=== PATIENT | male | born 1950 | race Caucasian/White ===

== ENCOUNTER → 2019-05-15 | Outpatient (CLI) | payer MEDICARE, OTHER ==
[~2019-05-15] MED LIST: DAYPRO600 M1 PO; MEDROL DOSEPAK4 MG PO; PROTONIX40 MG PO; RESTORIL30 MG PO; ROBAXIN750 MG PO; ULTRAM50 MG PO; VICODIN 500 MG-1 TAB PO
[2019-05-15 10:06] LABS: HEMATOCRIT 38.3 % (42.0-52.0); MEAN CELL VOLUME 83.4 fl (80.0-94.0); MEAN CORPUSCULAR HGB 26.1 pg (27.0-31.0); MEAN CORPUSCULAR HGB CONC 31.3 g/dl (33.0-37.0); MEAN PLATELET VOLUME 10.5 fl (9.6-12.3); RED BLOOD COUNT 4.59 10*6/uL (4.50-5.90); RED CELL DISTRI WIDTH 16.2 % (0-14.5); WHITE BLOOD COUNT 9.5 10*3/uL (4.8-10.8)
[2019-05-15 10:26] LABS: ALKALINE PHOSPHATASE 94 U/L (45-117); BUN 20 mg/dl (7-24); CHLORIDE 109 mmol/L (98-107); CHOLESTEROL 198 mg/dL (<200); CREATININE 1.16 mg/dL (0.70-1.30); HDL CHOLESTEROL 63 mg/dl (40-60); LDL CHOLESTEROL 113 mg/dL (9-159); POTASSIUM 3.8 mmol/L (3.5-5.1); SGOT/AST 21 IU/L (3-35); SGPT/ALT 23 U/L (12-78); SODIUM 141 mmol/L (136-145); TOTAL PROTEIN 8.1 gm/dL (6.4-8.2); TRIGLYCERIDES 110 mg/dl (<150); VLDL CHOLESTEROL 22 mg/dL (6-40)
== END | disposition home or self-care (01) ==
LOC: LAB 09:31
PROVIDERS: Family Medicine
DX: M47.816 Spondylosis without myelopathy or radiculopathy, lumbar region (principal); E55.9 Vitamin D deficiency, unspecified; R53.83 Other fatigue; I10 Essential (primary) hypertension

== ENCOUNTER → 2020-03-12 | Outpatient (CLI) | payer MEDICARE, OTHER ==
[~2020-03-12] MED LIST changes: +LISINOPRIL40 MG PO; +OSTERA TABLET1 EACH PO
[2020-03-12 08:24] LABS: MEAN CELL VOLUME 87.6 fl (80.0-94.0); MEAN CORPUSCULAR HGB 27.6 pg (27.0-31.0); MEAN CORPUSCULAR HGB CONC 31.5 g/dl (33.0-37.0); MEAN PLATELET VOLUME 10.3 fl (9.6-12.3); RED BLOOD COUNT 4.45 10*6/uL (4.50-5.90); RED CELL DISTRI WIDTH 14.9 % (0-14.5); WHITE BLOOD COUNT 8.7 10*3/uL (4.8-10.8)
[2020-03-12 08:52] LABS: ALBUMIN 4.4 gm/dl (3.1-4.5); CREATININE 1.53 mg/dL (0.70-1.30); POTASSIUM 4.6 mmol/L (3.5-5.1)
== END | disposition home or self-care (01) ==
LOC: LAB 08:05
PROVIDERS: ATTEND Family Medicine
DX: Z12.5 Encounter for screening for malignant neoplasm of prostate (principal); E78.00 Pure hypercholesterolemia, unspecified; E55.9 Vitamin D deficiency, unspecified; I10 Essential (primary) hypertension

== ENCOUNTER → 2020-03-25 | Outpatient (CLI) | payer MEDICARE, OTHER ==
[2020-03-25 10:44] LABS: ALBUMIN 4.1 gm/dl (3.1-4.5); BUN 21 mg/dl (7-24); CHLORIDE 112 mmol/L (98-107); CREATININE 1.41 mg/dL (0.70-1.30); POTASSIUM 4.4 mmol/L (3.5-5.1); SODIUM 142 mmol/L (136-145)
== END | disposition home or self-care (01) ==
LOC: LAB 09:58
PROVIDERS: ATTEND Family Medicine
DX: N18.3 Chronic kidney disease, stage 3 (moderate) (principal)

== ENCOUNTER → 2020-04-17 | Outpatient (CLI) | payer MEDICARE, OTHER ==
[2020-04-17 13:37] LABS: ALBUMIN 4.3 gm/dl (3.1-4.5); CREATININE 2.09 mg/dL (0.70-1.30); POTASSIUM 3.7 mmol/L (3.5-5.1)
== END | disposition home or self-care (01) ==
LOC: LAB 12:55
PROVIDERS: ATTEND Family Medicine
DX: N18.30 Chronic kidney disease, stage 3 unspecified (principal)

== ENCOUNTER 2022-01-09 21:19 | Inpatient (IN) | payer MEDICARE, OTHER ==
[~2022-01-09] VITALS: Ht 170.1 cm; Wt 71.7 kg
[2022-01-09 21:32] VITALS: BP 153/82
[2022-01-09 22:16] LABS: BASO # 0.1 10*3/uL (0.0-0.1); BASO % 0.8 % (0.0-1.0); EOS # 0.1 10*3/uL (0.0-0.4); EOS % 0.4 % (1.0-4.0); HEMATOCRIT 40.3 % (42.0-52.0); LYMPH % 7.5 % (27.0-41.0); MEAN CORPUSCULAR HGB 26.7 pg (27.0-31.0); MEAN CORPUSCULAR HGB CONC 31.8 g/dl (33.0-37.0); MEAN PLATELET VOLUME 10.2 fl (9.6-12.3); MONO # 0.7 10*3/uL (0.1-1.0); MONO % 5.2 % (3.0-9.0); NEUT # 11.8 10*3/uL (2.3-7.9); NEUT % 85.8 % (47.0-73.0); PLATELET COUNT AUTOMATED 368 10*3/uL (130-400); RED CELL DISTRI WIDTH 15.5 % (0-14.5); WHITE BLOOD COUNT 13.7 10*3/uL (4.8-10.8)
[2022-01-09 22:30] LABS: ALKALINE PHOSPHATASE 88 U/L (45-117); BUN 22 mg/dl (7-24); CHLORIDE 109 mmol/L (98-107); CREATININE 1.17 mg/dL (0.70-1.30); LIPASE 128 U/L (73-393); POTASSIUM 3.4 mmol/L (3.5-5.1); SGOT/AST 26 IU/L (3-35); SGPT/ALT 24 U/L (12-78); SODIUM 141 mmol/L (136-145); TOTAL PROTEIN 7.2 gm/dL (6.4-8.2)
[2022-01-10 06:06] LABS: BASO # 0.1 10*3/uL (0.0-0.1); BASO % 0.5 % (0.0-1.0); HEMATOCRIT 39.5 % (42.0-52.0); LYMPH # 0.8 10*3/uL (1.3-4.4); LYMPH % 6.4 % (27.0-41.0); MEAN CELL VOLUME 83.9 fl (80.0-94.0); MEAN CORPUSCULAR HGB 27.4 pg (27.0-31.0); MEAN CORPUSCULAR HGB CONC 32.7 g/dl (33.0-37.0); MONO # 0.8 10*3/uL (0.1-1.0); NEUT # 10.9 10*3/uL (2.3-7.9); NEUT % 86.8 % (47.0-73.0); PLATELET COUNT AUTOMATED 367 10*3/uL (130-400); RED BLOOD COUNT 4.71 10*6/uL (4.50-5.90); RED CELL DISTRI WIDTH 15.5 % (0-14.5); WHITE BLOOD COUNT 12.6 10*3/uL (4.8-10.8)
[2022-01-10 06:33] LABS: BUN 22 mg/dl (7-24); CHLORIDE 109 mmol/L (98-107); CREATININE 1.01 mg/dL (0.70-1.30); POTASSIUM 3.9 mmol/L (3.5-5.1); SGOT/AST 28 IU/L (3-35); SGPT/ALT 24 U/L (12-78); SODIUM 141 mmol/L (136-145); TOTAL PROTEIN 7.2 gm/dL (6.4-8.2)
[2022-01-10 06:34] LABS: ALKALINE PHOSPHATASE 87 U/L (45-117)
[2022-01-10 06:47] VITALS: BP 136/88
[2022-01-10 08:49] VITALS: BP 157/78; BP 162/69
[2022-01-10] MEDS ORDERED: NORVASC5 MG PO (09:08)
[2022-01-10] MEDS ORDERED: VITAMIN D350 MC2 PO (09:09)
[2022-01-10 16:00] VITALS: BP 162/89
[2022-01-10 20:00] VITALS: BP 166/85
[2022-01-11] VITALS: BP 152/83
[2022-01-11 05:51] LABS: ALKALINE PHOSPHATASE 79 U/L (45-117); BUN 22 mg/dl (7-24); CHLORIDE 112 mmol/L (98-107); CREATININE 0.96 mg/dL (0.70-1.30); POTASSIUM 3.3 mmol/L (3.5-5.1); SGOT/AST 27 IU/L (3-35); SGPT/ALT 21 U/L (12-78); SODIUM 144 mmol/L (136-145); TOTAL PROTEIN 6.7 gm/dL (6.4-8.2)
[2022-01-11 05:52] LABS: BILIRUBIN Negative (Negative); BLOOD Negative (Negative); CLARITY Clear (Clear); COLOR Yellow (Yellow); GLUCOSE Negative (Negative); KETONE Trace (Negative); LEUKO ESTERASE Negative (Negative); NITRITE Negative (Negative); PH 5.5 (4.5-8.0); SPECIFIC GRAVITY 1.015 (1.001-1.030); UROBILINOGEN 0.2 E.U./dl (0.0-1.0)
[2022-01-11 06:00] LABS: BASO # 0.1 10*3/uL (0.0-0.1); BASO % 0.5 % (0.0-1.0); EOS % 0.3 % (1.0-4.0); LYMPH # 1.5 10*3/uL (1.3-4.4); LYMPH % 16.4 % (27.0-41.0); MEAN CELL VOLUME 83.7 fl (80.0-94.0); MEAN CORPUSCULAR HGB 27.1 pg (27.0-31.0); MEAN CORPUSCULAR HGB CONC 32.4 g/dl (33.0-37.0); MEAN PLATELET VOLUME 10.4 fl (9.6-12.3); MONO # 0.9 10*3/uL (0.1-1.0); MONO % 9.8 % (3.0-9.0); NEUT # 6.5 10*3/uL (2.3-7.9); NEUT % 71.8 % (47.0-73.0); PLATELET COUNT AUTOMATED 339 10*3/uL (130-400); RED BLOOD COUNT 4.54 10*6/uL (4.50-5.90); RED CELL DISTRI WIDTH 15.4 % (0-14.5); WHITE BLOOD COUNT 9.1 10*3/uL (4.8-10.8)
[2022-01-11 07:03] LABS: CALCIUM OXALATE CRYSTALS 1+
[2022-01-11 07:04] LABS: BACTERIA 1+; WBC 0-2 wbc/hpf (0-5)
[2022-01-11 08:00] VITALS: BP 152/86
[2022-01-11 12:00] VITALS: BP 158/94
[2022-01-11 16:00] VITALS: BP 129/65
[2022-01-11 20:00] VITALS: BP 146/84
[2022-01-12] VITALS: BP 144/90
[2022-01-12 06:30] LABS: BASO # 0.1 10*3/uL (0.0-0.1); EOS # 0.1 10*3/uL (0.0-0.4); HEMATOCRIT 39.1 % (42.0-52.0); LYMPH # 1.5 10*3/uL (1.3-4.4); LYMPH % 19.2 % (27.0-41.0); MEAN CELL VOLUME 84.8 fl (80.0-94.0); MEAN CORPUSCULAR HGB 26.9 pg (27.0-31.0); MEAN CORPUSCULAR HGB CONC 31.7 g/dl (33.0-37.0); MEAN PLATELET VOLUME 10.8 fl (9.6-12.3); MONO # 0.8 10*3/uL (0.1-1.0); MONO % 10.3 % (3.0-9.0); NEUT # 5.4 10*3/uL (2.3-7.9); NEUT % 68.1 % (47.0-73.0); PLATELET COUNT AUTOMATED 357 10*3/uL (130-400); RED BLOOD COUNT 4.61 10*6/uL (4.50-5.90); RED CELL DISTRI WIDTH 15.5 % (0-14.5); WHITE BLOOD COUNT 7.9 10*3/uL (4.8-10.8)
[2022-01-12 06:50] LABS: ALKALINE PHOSPHATASE 73 U/L (45-117); BUN 15 mg/dl (7-24); CHLORIDE 111 mmol/L (98-107); CREATININE 0.93 mg/dL (0.70-1.30); POTASSIUM 3.7 mmol/L (3.5-5.1); SGOT/AST 26 IU/L (3-35); SGPT/ALT 20 U/L (12-78); SODIUM 141 mmol/L (136-145); TOTAL PROTEIN 6.3 gm/dL (6.4-8.2)
[2022-01-12 08:00] VITALS: BP 146/80
[2022-01-12 12:00] VITALS: BP 141/87
[2022-01-12 16:00] VITALS: BP 146/82
[2022-01-12 20:00] VITALS: BP 143/77
[2022-01-13] VITALS: BP 136/86
[2022-01-13 08:00] VITALS: BP 170/93
[2022-01-13] MEDS ORDERED: RIVASTIGMINE1 EAC1 T (08:35)
== END 2022-01-13 12:00 | disposition home health service (06) | DRG 390 ==
LOC: ED 21:19 → EDHOLD 01-10 01:59 → 4E 01-10 01:59
PROVIDERS: Internal Medicine; ADMIT Internal Medicine; ATTEND Internal Medicine
DX: K56.50 Intestinal adhesions [bands], unspecified as to partial versus complete obstruction (principal); K56.609 Unspecified intestinal obstruction, unspecified as to partial versus complete obstruction; I10 Essential (primary) hypertension; Z20.822 Contact with and (suspected) exposure to COVID-19; E87.6 Hypokalemia; G89.29 Other chronic pain; M54.9 Dorsalgia, unspecified; F32.9 Major depressive disorder, single episode, unspecified; G30.1 Alzheimer's disease with late onset; F02.80 Dementia in other diseases classified elsewhere, unspecified severity, without behavioral disturbance, psychotic disturbance, mood disturbance, and anxiety; F41.1 Generalized anxiety disorder; Z82.49 Family history of ischemic heart disease and other diseases of the circulatory system; Z90.81 Acquired absence of spleen

== ENCOUNTER 2022-12-10 15:09 | Inpatient (IN) | payer MEDICARE, OTHER ==
[~2022-12-10] VITALS: Ht 170.1 cm; Wt 71.2 kg
[~2022-12-10 15:09] MED LIST changes: +LISINOPRIL10 M1 PO; +NORVASC5 MG PO; +RIVASTIGMINE1 EAC1 T; +TRAMADOL HCL50 MG PO; +VITAMIN D350 MC2 PO
[2022-12-10 18:17] VITALS: BP 139/83
[2022-12-10] MEDS ORDERED: NAMENDA-5 PO (19:31)
[2022-12-10] MEDS ORDERED: MELATONIN5 M1 PO (19:33)
[2022-12-10] MEDS ORDERED: RIVASTIGMINE TAR6 M1 PO (19:33)
[2022-12-10] MEDS ORDERED: REMERON15 M2 PO (19:34)
[2022-12-10] MEDS ORDERED: CLARITIN10 MG PO (19:34)
[2022-12-10] MEDS ORDERED: RISPERDAL0.5 MG PO (19:34)
[2022-12-10] MEDS ORDERED: NASA MIST SALIN75 ML NAS (19:36)
[2022-12-10] MEDS ORDERED: TRAMADOL HCL50 MG PO (19:46)
[2022-12-10 20:00] VITALS: BP 138/64
[2022-12-11 07:19] LABS: THYROID STIM HORMONE (HS) 1.4 uIU/ml (0.550-4.780)
[2022-12-11 07:26] VITALS: BP 134/95
[2022-12-11 07:57] LABS: VITAMIN D, 25-HYDROXY 29.1 ng/mL (30-100)
[2022-12-11 20:31] VITALS: BP 153/98
[2022-12-12 07:45] VITALS: BP 133/76
[2022-12-12 20:00] VITALS: BP 140/65
[2022-12-13 08:00] VITALS: BP 137/87
[2022-12-13 12:06] LABS: BILIRUBIN Negative (Negative); BLOOD Negative (Negative); CLARITY Clear (Clear); COLOR Yellow (Yellow); GLUCOSE Negative (Negative); KETONE Negative (Negative); LEUKO ESTERASE Negative (Negative); NITRITE Negative (Negative); PH 5.5 (4.5-8.0); SPECIFIC GRAVITY 1.025 (1.001-1.030); UROBILINOGEN 0.2 E.U./dl (0.0-1.0)
[2022-12-13 12:14] LABS: BACTERIA 2+; MUCOUS 1+; WBC 0-2 wbc/hpf (0-5)
[2022-12-13 20:00] VITALS: BP 138/72
[2022-12-14 07:27] VITALS: BP 129/73
[2022-12-14 20:00] VITALS: BP 140/70
[2022-12-15 07:34] VITALS: BP 139/77
[2022-12-15] MEDS ORDERED: RISPERIDONE2 M2 PO (08:22)
[2022-12-15] MEDS ORDERED: MEMANTINE HCL10 MG PO (08:22)
[2022-12-15] MEDS ORDERED: LORAZEPAM1 MG PO (08:22)
[2022-12-15] MEDS ORDERED: RIVASTIGMINE TAR3 M1 PO (08:22)
[2022-12-15] MEDS ORDERED: MIRTAZAPINE15 M2 PO (08:22)
== END 2022-12-15 13:16 | disposition home or self-care (01) | DRG 885 ==
LOC: 3N 15:09
PROVIDERS: Counselor Professional; ADMIT Psychiatry & Neurology Psychiatry; ATTEND Psychiatry & Neurology Psychiatry
DX: F33.3 Major depressive disorder, recurrent, severe with psychotic symptoms (principal); F23 Brief psychotic disorder; F02.82 Dementia in other diseases classified elsewhere, unspecified severity, with psychotic disturbance; F51.01 Primary insomnia; F51.04 Psychophysiologic insomnia; G30.1 Alzheimer's disease with late onset; J30.89 Other allergic rhinitis; M19.90 Unspecified osteoarthritis, unspecified site; F41.1 Generalized anxiety disorder

== ENCOUNTER 2023-05-30 08:06 | Emergency (ER) | payer MEDICARE, OTHER ==
[~2023-05-30] VITALS: Ht 170.1 cm; Wt 74.8 kg
[~2023-05-30 08:06] MED LIST changes: +CLARITIN10 MG PO; +LORAZEPAM1 MG PO; +MELATONIN5 M1 PO; +MEMANTINE HCL10 MG PO; +MIRTAZAPINE15 M2 PO; +NAMENDA-5 PO; +NASA MIST SALIN75 ML NAS; +QUETIAPINE FUM100 M3 PO; +REMERON15 M2 PO; +RISPERDAL0.5 MG PO; +RISPERIDONE2 M2 PO; +RIVASTIGMINE TAR3 M1 PO; +RIVASTIGMINE TAR6 M1 PO; +TYLENOL EXTRA500 MG PO
[2023-05-30 08:30] VITALS: BP 171/99
[2023-05-30 09:02] LABS: BASO # 0.1 10*3/uL (0.0-0.1); BASO % 0.7 % (0.0-1.0); EOS % 0.2 % (1.0-4.0); HEMATOCRIT 39.6 % (42.0-52.0); LYMPH # 1.4 10*3/uL (1.3-4.4); LYMPH % 13.9 % (27.0-41.0); MEAN CELL VOLUME 83.9 fl (80.0-94.0); MEAN CORPUSCULAR HGB 27.3 pg (27.0-31.0); MEAN CORPUSCULAR HGB CONC 32.6 g/dl (33.0-37.0); MEAN PLATELET VOLUME 9.9 fl (9.6-12.3); MONO # 0.6 10*3/uL (0.1-1.0); MONO % 5.8 % (3.0-9.0); NEUT # 7.7 10*3/uL (2.3-7.9); PLATELET COUNT AUTOMATED 378 10*3/uL (130-400); RED BLOOD COUNT 4.72 10*6/uL (4.50-5.90); WHITE BLOOD COUNT 9.7 10*3/uL (4.8-10.8)
[2023-05-30 09:25] LABS: ALKALINE PHOSPHATASE 96 U/L (46-116); BUN 16 mg/dl (9-23); CHLORIDE 111 mmol/L (98-107); POTASSIUM 3.3 mmol/L (3.4-5.1); SGPT/ALT 18 U/L (5-49); TOTAL PROTEIN 7.5 gm/dL (6.0-8.0)
[2023-05-30] MEDS ORDERED: AVPAK AZITHROM250 M1 PO (09:50)
== END 2023-05-30 10:00 | disposition home or self-care (01) ==
LOC: ED 08:06
PROVIDERS: Emergency Medicine
DX: J40 Bronchitis, not specified as acute or chronic (principal); E87.6 Hypokalemia; E78.5 Hyperlipidemia, unspecified; F32.A Depression, unspecified; F41.9 Anxiety disorder, unspecified; I12.9 Hypertensive chronic kidney disease with stage 1 through stage 4 chronic kidney disease, or unspecified chronic kidney disease; N18.9 Chronic kidney disease, unspecified; Z98.890 Other specified postprocedural states; Z20.822 Contact with and (suspected) exposure to COVID-19

== ENCOUNTER 2023-07-10 08:49 | Emergency (ER) | payer MEDICARE, OTHER ==
[~2023-07-10] VITALS: Ht 170.1 cm; Wt 75.3 kg
[~2023-07-10 08:49] MED LIST changes: +AVPAK AZITHROM250 M1 PO
[2023-07-10 09:15] VITALS: BP 160/81
[2023-07-10 09:32] LABS: BASO # 0.1 10*3/uL (0.0-0.1); BASO % 1.1 % (0.0-1.0); EOS # 0.1 10*3/uL (0.0-0.4); EOS % 0.9 % (1.0-4.0); HEMATOCRIT 33.6 % (42.0-52.0); LYMPH # 1.1 10*3/uL (1.3-4.4); LYMPH % 13.4 % (27.0-41.0); MEAN CELL VOLUME 86.8 fl (80.0-94.0); MEAN CORPUSCULAR HGB 27.4 pg (27.0-31.0); MEAN CORPUSCULAR HGB CONC 31.5 g/dl (33.0-37.0); MEAN PLATELET VOLUME 9.4 fl (9.6-12.3); MONO # 0.7 10*3/uL (0.1-1.0); MONO % 8.7 % (3.0-9.0); NEUT # 6.2 10*3/uL (2.3-7.9); NEUT % 75.5 % (47.0-73.0); PLATELET COUNT AUTOMATED 333 10*3/uL (130-400); RED BLOOD COUNT 3.87 10*6/uL (4.50-5.90); RED CELL DISTRI WIDTH 17.1 % (0-14.5); WHITE BLOOD COUNT 8.2 10*3/uL (4.8-10.8)
[2023-07-10 09:57] LABS: ALKALINE PHOSPHATASE 74 U/L (46-116); BUN 23 mg/dl (9-23); CHLORIDE 110 mmol/L (98-107); ETHYL ALCOHOL < 3.0 mg/dl (<3); POTASSIUM 3.5 mmol/L (3.4-5.1); SGPT/ALT 22 U/L (5-49); TOTAL PROTEIN 6.6 gm/dL (6.0-8.0)
[2023-07-10 11:17] LABS: BILIRUBIN Negative (Negative); BLOOD Trace-Lysed (Negative); CLARITY Clear (Clear); COLOR Yellow (Yellow); GLUCOSE Negative (Negative); KETONE 2+ (Negative); LEUKO ESTERASE Negative (Negative); NITRITE Negative (Negative); SPECIFIC GRAVITY 1.025 (1.001-1.030); UROBILINOGEN 0.2 E.U./dl (0.0-1.0)
[2023-07-10 11:37] LABS: URINE AMPHETAMINES Negative (1000ng/ml); URINE BARBITURATES Negative (200ng/ml); URINE BENZODIAZEPINES Negative (200ng/ml); URINE CANNABINOIDS (THC) Negative (50ng/ml); URINE COCAINE Negative (300ng/ml); URINE METHADONE Negative (300ng/ml); URINE OPIATES Negative (300ng/ml); URINE PHENCYCLIDINE Negative (25ng/ml)
[2023-07-10 11:50] LABS: HYALINE CAST 0-2
[2023-07-10 11:54] LABS: WBC 0-2 wbc/hpf (0-5)
[2023-07-10 11:55] LABS: BACTERIA 2+
== END 2023-07-10 20:33 ==
LOC: ED 08:49
PROVIDERS: Family Medicine
DX: F29 Unspecified psychosis not due to a substance or known physiological condition (principal); D53.9 Nutritional anemia, unspecified; R31.9 Hematuria, unspecified; N39.0 Urinary tract infection, site not specified; F17.210 Nicotine dependence, cigarettes, uncomplicated; Z79.899 Other long term (current) drug therapy; Z79.2 Long term (current) use of antibiotics; Z90.49 Acquired absence of other specified parts of digestive tract

== ENCOUNTER 2023-07-29 13:17 | Emergency (ER) | payer MEDICARE, OTHER ==
[~2023-07-29] VITALS: Ht 175.2 cm; Wt 75.3 kg
[2023-07-29 13:46] LABS: BASO # 0.1 10*3/uL (0.0-0.1); BASO % 0.8 % (0.0-1.0); HEMATOCRIT 35.6 % (42.0-52.0); LYMPH # 0.9 10*3/uL (1.3-4.4); LYMPH % 11.8 % (27.0-41.0); MEAN CELL VOLUME 85.2 fl (80.0-94.0); MEAN CORPUSCULAR HGB CONC 31.7 g/dl (33.0-37.0); MEAN PLATELET VOLUME 10.1 fl (9.6-12.3); MONO # 0.5 10*3/uL (0.1-1.0); MONO % 6.8 % (3.0-9.0); NEUT # 5.9 10*3/uL (2.3-7.9); NEUT % 80.3 % (47.0-73.0); PLATELET COUNT AUTOMATED 376 10*3/uL (130-400); RED BLOOD COUNT 4.18 10*6/uL (4.50-5.90); RED CELL DISTRI WIDTH 16.5 % (0-14.5); WHITE BLOOD COUNT 7.3 10*3/uL (4.8-10.8)
[2023-07-29 14:08] LABS: ACT PARTIAL THROMBO TIME 26.7 SECONDS (20.0-32.1)
[2023-07-29 14:09] LABS: ALKALINE PHOSPHATASE 89 U/L (46-116); BUN 19 mg/dl (9-23); CHLORIDE 108 mmol/L (98-107); CPK 907 U/L (34-171); LIPASE 43 U/L (12-53); POTASSIUM 3.2 mmol/L (3.4-5.1); SGPT/ALT 30 U/L (5-49); TOTAL PROTEIN 7.2 gm/dL (6.0-8.0)
[2023-07-29 14:12] LABS: ETHYL ALCOHOL < 3.0 mg/dl (<3)
[2023-07-29 16:46] LABS: BILIRUBIN Negative (Negative); BLOOD Negative (Negative); CLARITY Clear (Clear); COLOR Yellow (Yellow); GLUCOSE Negative (Negative); KETONE 1+ (Negative); LEUKO ESTERASE Trace (Negative); NITRITE Negative (Negative); URINE AMPHETAMINES Negative (1000ng/ml); URINE BARBITURATES Negative (200ng/ml); URINE BENZODIAZEPINES Negative (200ng/ml); URINE CANNABINOIDS (THC) Negative (50ng/ml); URINE COCAINE Negative (300ng/ml); URINE METHADONE Negative (300ng/ml); URINE OPIATES Negative (300ng/ml); URINE PHENCYCLIDINE Negative (25ng/ml)
[2023-07-29 16:55] LABS: BACTERIA TRACE; CALCIUM OXALATE CRYSTALS Trace; RBC 0-2 rbc/hpf (0-2)
[2023-07-30 11:21] VITALS: BP 148/64
== END 2023-07-30 15:06 | disposition short-term general hospital (02) ==
LOC: ED 13:17
PROVIDERS: Internal Medicine
DX: F29 Unspecified psychosis not due to a substance or known physiological condition (principal); Z20.822 Contact with and (suspected) exposure to COVID-19; Z79.899 Other long term (current) drug therapy; Z90.89 Acquired absence of other organs